=== PATIENT | female | born 1980 | race Caucasian/White ===

== ENCOUNTER 2018-10-26 13:43 | Day surgery (SDC) | payer OTHER ==
[2018-10-26] MEDS ORDERED: PROPOFOL 20 ML ×2 (16:24→17:16)
== END 2018-10-26 17:37 | disposition home or self-care (01) ==
LOC: GIL 13:43
DX: K22.2 Esophageal obstruction (principal); K44.9 Diaphragmatic hernia without obstruction or gangrene; K22.10 Ulcer of esophagus without bleeding
CPT/HCPCS: 43249; 84703